=== PATIENT | male | born 1955 | race Caucasian/White ===

== ENCOUNTER 2017-04-02 18:23 | Emergency (ER) | payer OTHER ==
[~2017-04-02] VITALS: Ht 177.8 cm; Wt 88.5 kg
[2017-04-02 18:28] VITALS: BP_SYST 193
[2017-04-02] MEDS ORDERED: cloNIDine HCL 0.1 MG TABLET PO ONE (18:45)
[2017-04-02] MEDS ORDERED: KETOROLAC TROMETHAMINE 30 MG VIAL IVP ONE (18:45)
[2017-04-02] MEDS ORDERED: LORazepam 2 MG/ML VIAL (FOR ER USE) IVP ONE (18:45)
[2017-04-02] MEDS ORDERED: OLME40TA13 PO (19:01)
[2017-04-02] MEDS ORDERED: HYDR-4100 PO (19:01)
[2017-04-02] MEDS ORDERED: PRO20 PO (19:01)
[2017-04-02] MEDS ORDERED: TIZA4TAB11 PO (19:01)
[2017-04-02] MEDS ORDERED: ASPI81TA2 PO (19:01)
[2017-04-02] MEDS ORDERED: ATEN50TA PO (19:01)
[2017-04-02] MEDS ORDERED: SENN-104 PO (19:01)
[2017-04-02 19:08] LABS: BASOPHILS % (AUTO) 0.1 % (0.0-2.0); EOSINOPHILS % (AUTO) 0.1 % (0.0-4.0); HEMOGLOBIN 14.2 g/dL (14.0-18.0); MONOCYTES # (AUTO) 0.1 K/uL (0.0-1.0); RED BLOOD CELL COUNT(AUTO) 4.64 MIL/uL (4.2-6.2)
[2017-04-02 19:11] LABS: CALCIUM 9.6 mg/dL (8.4-11.0); CREATININE 1.19 mg/dL (0.55-1.30); POTASSIUM 4.1 mmol/L (3.5-5.1)
[2017-04-02 19:12] LABS: HEMATOCRIT 42.8 % (36-54); LYMPHOCYTES # (AUTO) 0.5 K/uL (1.0-5.5); LYMPHOCYTES % (AUTO) 6.9 % (20.5-51.5); MEAN CORPUSCULAR HEMOGLOBIN 31 pg (27-31); MEAN CORPUSCULAR HGB CONC 33 % (32-36); MEAN CORPUSCULAR VOLUME 92 fL (79.0-98.0); MONOCYTES % (AUTO) 1.1 % (1.7-9.3); NEUTROPHILS % (AUTO) 91.8 % (40.0-70.0); PLATELET COUNT (AUTO) 268 K/uL (130-430); RED CELL DISTRIBUTION WIDTH 12.1 % (9.0-15.0); WHITE BLOOD COUNT (AUTO) 7.6 K/uL (4.8-10.8)
[2017-04-02 19:14] LABS: PROTHROMBIN TIME 10.9 SECS (9.5-12.5)
[2017-04-02 19:16] LABS: ALBUMIN 4.3 g/dL (3.4-4.8); TOTAL BILIRUBIN 0.7 mg/dL (0.0-1.0); TOTAL PROTEIN, SERUM 7.8 g/dL (6.4-8.3)
[2017-04-02] MEDS ORDERED: ONDANSETRON HCL 4 MG/2 ML VIAL IVP ONE (20:00)
[2017-04-02] MEDS ORDERED: PROCHLORPERAZINE EDISYLATE 10 MG/2 ML VIAL IVP ONE (20:30)
[2017-04-02 21:25] VITALS: BP_SYST 160
== END 2017-04-02 21:25 | disposition home or self-care (01) ==
LOC: SED 18:23
DX: R07.89 Other chest pain (principal); I10 Essential (primary) hypertension
CPT/HCPCS: 36415; 71010; 80053; 83880; 84484; 85025; 85610; 85730; 93005; 96374; 96375; 99285; J0780; J1885; J2060; J2405